=== PATIENT | male | born 1950 | race Two or more races ===

== ENCOUNTER 2024-04-25 06:17 | Day surgery (SDC) | payer MEDICARE, SELFPAY ==
[2024-04-04 08:52] LABS: Hemoglobin 14.7 g/dL (13.0-18.0); Mean Corp Hgb Conc. 33.4 g/dL (33.0-37.0); Mean Corpuscular Hgb 29.9 pg (27.0-31.0); Mean Corpuscular Volume 89.4 fL (80.0-94.0); Mean Platelet Volume 9.5 fL (7.4-10.4); Platelet Count 232 10^3/uL (130-400); Red Blood Cell Count 4.92 10^6/uL (4.70-6.10); Red Cell Dist. Width 12.6 % (11.5-14.5); White Blood Cell Count 8.7 10^3/uL (4.8-10.8)
[2024-04-04 09:12] LABS: ALT (SGPT) 26 U/L (0-50); AST (SGOT) 26 U/L (17-59); Alkaline Phosphatase 56 U/L (38-126); Blood Urea Nitrogen 24 mg/dl (9-20); Calcium 9.1 mg/dl (8.4-10.2); Carbon Dioxide 28 mmol/L (22-30); Chloride 99 mmol/L (98-107); Glucose 101 mg/dl (70-99); Potassium 4.5 mmol/L (3.5-5.1); Sodium 136 mmol/L (135-145); Total Bilirubin 0.4 mg/dl (0.2-1.3); Total Protein 6.4 g/dl (6.3-8.2); eGFR > 60.00
[2024-04-04 09:38] LABS: Glycohemoglobin (HgbA1c) 6.1 % (4.0-5.6)
--- NOTE | 2024-04-04 11:39 | SUR.OPER ---
Patients 04/04 ECG abnormal- Earlene @ [facility] notified
[2024-04-04 14:00] VITALS: BMI 30.1
--- NOTE | 2024-04-14 15:57 | VNURNOTE ---
Addendum entered by Jania Wilson RN 04/14/24 16:16:
Received call back from patient. Patient is scheduled for an elective R PRADEEP on 04/25/24- he is a same day patient with Dr Sandoval. Spoke with patient prior to surgery. Introduced role of [facility] Liaison. Patient reports that he lives with his in a
MULTI story home.
There are 5 steps to enter. There is a first floor set up with two baths.
He has a raised toilet seat, hip kit, WC, and rolling walker.
Discussed SDS joint protocol and post surgical plans.
Reviewed that he will have [facility] services initially and will then start outpatient PT.
Patient selects [facility]N for his home care needs and has Maryuri Hancock scheduled for outpatient PT. Scheduled for 04/28.
Patient is in agreement with plan and states that his will be home with him. Advised to bring RW with him day of surgery. Referral placed in [facility].
Plan: [facility] per SDS joint protocol then outpt PT on 04/28
Original Note:
[facility] liaison called patient to review SDS joint protocol/ [facility]/PT. No answer, left message. [facility] referral placed in [facility].
--- NOTE | 2024-04-19 08:08 | PTCARENOTE ---
Patients 04/04 ECG abnormal- Earlene @ [facility] notified on 04/04
[2024-04-19 09:35] VITALS: BMI 30.1
[2024-04-25] VITALS (17 sets, daily range): BP systolic 80–168; BP diastolic 53–133; PULSE 75; O2SAT 98
[2024-04-25 07:12] LABS: Glucose - Point of Care 73 mg/dl (70-99)
[2024-04-25] MEDS: CELEBREX 200 MG PO (07:12)
[2024-04-25] MEDS: TYLENOL 650 MG PO (07:12)
[2024-04-25] MEDS: NORMOSOL-R/PLASMALYTE-A 1000 IV (07:12)
[2024-04-25 10:58] LABS: Glucose - Point of Care 76 mg/dl (70-99)
[2024-04-25] MEDS: ANCEF 5 IV (12:31)
== END 2024-04-25 15:04 | disposition home health service (06) ==
LOC: SDS 06:17
PROVIDERS: ATTENDING PHYSICIAN Specialist; FAMILY PHYSICIAN Internal Medicine
PROC: 0SR90JZ Replacement of Right Hip Joint with Synthetic Substitute, Open Approach (ICD-10-PCS; 2024-04-25)
DX: M16.11 Unilateral primary osteoarthritis, right hip (principal); I45.2 Bifascicular block; K21.9 Gastro-esophageal reflux disease without esophagitis; E11.9 Type 2 diabetes mellitus without complications; E78.5 Hyperlipidemia, unspecified
CPT/HCPCS: 27130; 36415; 73502; 80053; 82962; 83036; 85027; 87070; 93005; 97116; 97162; C1713; C1776